=== PATIENT | male | born 2000 | race American Indian/Alaskan Native ===

== ENCOUNTER 2021-12-22 17:01 | Emergency (ER) | payer SELFPAY ==
[2021-12-22 17:04] VITALS: BP 128/76
[2021-12-22] MEDS ORDERED: IBUPROFEN 800 MG TAB PO ONE (19:48)
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
== END 2021-12-22 21:38 | disposition home or self-care (01) ==
LOC: ED 17:01
DX: M62.830 Muscle spasm of back (principal); M54.50 Low back pain, unspecified; Z79.899 Other long term (current) drug therapy; V87.7XXA Person injured in collision between other specified motor vehicles (traffic), initial encounter; Y93.89 Activity, other specified; Y92.488 Other paved roadways as the place of occurrence of the external cause; Y99.8 Other external cause status
CPT/HCPCS: 99283